=== PATIENT | female | born 1985 | race Hispanic/Latino ===

== ENCOUNTER 2017-04-17 12:41 | Emergency (ER) | payer MEDICAID, OTHER ==
[2017-04-17 13:01] VITALS: TEMP 98.2; O2SAT 99; BMI 30.7
[2017-04-17] MEDS ORDERED: MethylPREDNISolone 40 mg Vial IM STA (13:20)
--- NOTE | 2017-04-17 15:01 | MRI ---
PROCEDURE: MR LUMBAR SPINE WITHOUT CONTRAST HISTORY: low back pain COMPARISON: None available. TECHNIQUE: Multiecho multiplanar sequences were performed through the lumbar spine without the use of intravenous contrast. FINDINGS: Normal lumbar lordosis. Vertebral body heights are preserved. Marrow signal unremarkable. Conus medullaris unremarkable at the level of L1 Paraspinal soft tissues are unremarkable. T12-L1: No disc herniation, spinal canal stenosis or neural foraminal narrowing. L1-2: No disc herniation, spinal canal stenosis or neural foraminal narrowing. L2-3: No disc herniation, spinal canal stenosis or neural foraminal narrowing. L3-4: No disc herniation, spinal canal stenosis or neural foraminal narrowing. L4-5: There is a mild disc bulge and a small left paracentral disc protrusion. L5-S1: Disc degeneration with desiccation of the disc material and mild loss of disc height OTHER FINDINGS: None. IMPRESSION: Disc degeneration with small left paracentral disc protrusion at L4-5. No evidence of direct nerve root compression. No stenosis
--- NOTE | 2017-04-17 15:30 | ED PDOC ---
Arrival/HPI - General Chief Complaint: Back Pain Time Seen by Provider: 04/17/17 13:09 Historian: Patient - History of Present Illness Narrative History of Present Illness (Text): 04/17/17 15:56 31 yo F c/o 3 day history of constant worsening pain in the lower back, radiating to b/l LE. Patient states that she has a history of intermittent chronic low back pain x 10 years, states that her pain is mostly intermittent however for the past 3 days the pain has been constant and worsening, she adds she has shooting pain that is radiating to both of her legs which is new. Otherwise: (-) paresthesias, (-) weakness, (-) acute bowel or bladder dysfunction, (-) urinary symptoms, (-) trauma or injury, (-) fever. Has history of prior back problem. PMD none Past Medical History - Provider Review Nursing Documentation Reviewed: Yes - Infectious Disease Hx of Infectious Diseases: None - Psychiatric Hx Substance Use: No - Anesthesia Hx Anesthesia: No Family/Social History - Physician Review Nursing Documentation Reviewed: Yes Family/Social History: No Known Family HX Smoking Status: Never Smoked Hx Alcohol Use: No Hx Substance Use: No Allergies/Home Meds Allergies/Adverse Reactions: Allergies No Known Allergies Allergy (Verified 04/17/17 12:56) Review of Systems - Review of Systems Constitutional: Normal. absent: Fatigue, Weight Change, Fevers Respiratory: Normal. absent: SOB, Cough, Sputum Cardiovascular: Normal. absent: Chest Pain, Palpitations, Edema Gastrointestinal: Normal. absent: Abdominal Pain, Stool Changes, Appetite Changes Musculoskeletal: Normal, Back Pain (chronic back pain). absent: Arthralgias, Neck Pain Skin: Normal. absent: Rash, Pruritis, Skin Lesions Physical Exam - Physical Exam Narrative Physical Exam (Text): 04/17/17 16:00 GENERAL APPEARANCE: Patient is awake, alert, oriented x 3, in mild to moderate painful distress. SKIN: Warm, dry; (-) cyanosis. EYES: (-) conjunctival pallor. ENMT: Mucous membranes moist. NECK: (-) tenderness, (-) stiffness, (-) lymphadenopathy. CHEST AND RESPIRATORY: (-) rales, (-) rhonchi, (-) wheezes; breath sounds equal bilaterally. HEART AND CARDIOVASCULAR: (-) irregularity; (-) murmur, (-) gallop. ABDOMEN AND GI: Soft; (-) tenderness; (-) palpable mass. BACK: Diffusely tender paralumbar area, (-) spasm, (+) direct bony tenderness to L4-L5, (-) deformity. Straight leg raising (+) only to the R leg at 30 degrees. EXTREMITIES: (-) deformity. Distal pulses good bilaterally. NEURO AND PSYCH: Mental status as above. Intact sensation bilaterally; normal strength in extension of the knees, plantar and dorsiflexion of the toes. DTRs symmetric. Vital Signs Temp Pulse Resp BP Pulse Ox 04/17/17 15:39 74 18 118/72 99 04/17/17 12:59 98.2 F 78 19 110/77 99 Medical Decision Making ED Course and Treatment: 04/17/17 16:01 31 yo F c/o 3 day history of constant worsening pain in the lower back, radiating to b/l LE. Considering the new symptoms of radicular pain, MRI ordered. Plan: - Toradol IM - Solumedrol IM - Tramadol PO - Flexeril PO - MRI L spine - Uhcg On re-evaluation, patient reports improvement of pain. Uhcg (-). Pt sent to MRI. Pt returns from MRI, results still pending. On second re-evaluation, pt states that the pain is returning. On exam, pt is noted to be ambulating in the ER in mild painful distress. Repeat neuro exam, shows no acute findings. MRI results reviewed, shows no evidence of cord compression. Pt medicated with tramadol PO. Pt notified of likely diagnosis of sciatica and MRI findings d/w the pt in great detail. Otherwise advised to follow up with orthopedic referral provided in 1-2 days without fail. Advised to take medication as prescribed. Return to the emergency room at any time for any new or worsening symptoms. Patient states she fully agrees with and understands discharge instructions. States that she agrees with the plan and disposition. Verbalized and repeated discharge instructions and plan. I have given the patient opportunity to ask any additional questions. - RAD Interpretation Narrative RAD Interpretations (Text): 04/17/17 15:30 MRI L spine w/o contrast: FINDINGS: Normal lumbar lordosis. Vertebral body heights are preserved. Marrow signal unremarkable. Conus medullaris unremarkable at the level of L1 Paraspinal soft tissues are unremarkable. T12-L1: No disc herniation, spinal canal stenosis or neural foraminal narrowing. L1-2: No disc herniation, spinal canal stenosis or neural foraminal narrowing. L2-3: No disc herniation, spinal canal stenosis or neural foraminal narrowing. L3-4: No disc herniation, spinal canal stenosis or neural foraminal narrowing. L4-5: There is a mild disc bulge and a small left paracentral disc protrusion. L5-S1: Disc degeneration with desiccation of the disc material and mild loss of disc height OTHER FINDINGS: None. IMPRESSION: Disc degeneration with small left paracentral disc protrusion at L4-5. No evidence of direct nerve root compression. No stenosis Radiology Orders: 04/17/17 13:47 SPINAL CANAL LUMBAR W/O CONT [MRI] Stat - Medication Orders Current Medication Orders: Discontinued Medications Cyclobenzaprine HCl (Flexeril) 10 mg PO STAT STA Stop: 04/17/17 13:21 Last Admin: 04/17/17 13:35 Dose: 10 mg Ketorolac Tromethamine (Toradol) 60 mg IM STAT STA Stop: 04/17/17 13:21 Last Admin: 04/17/17 13:35 Dose: 60 mg Methylprednisolone (Solu-Medrol) 125 mg IM STAT STA Stop: 04/17/17 13:26 Last Admin: 04/17/17 13:35 Dose: 125 mg Tramadol HCl (Ultram) 50 mg PO STAT STA Stop: 04/17/17 13:21 Last Admin: 04/17/17 13:35 Dose: 50 mg Tramadol HCl (Ultram) 50 mg PO STAT STA Stop: 04/17/17 15:27 Last Admin: 04/17/17 15:38 Dose: 50 mg - PA / [employer]ER / Resident Statement / has reviewed & agrees with the documentation as recorded. Disposition/Present on Arrival - Present on Arrival Any Indicators Present on Arrival: No History of DVT/PE: No History of Uncontrolled Diabetes: No Urinary Catheter: No History of Decub. Ulcer: No History Surgical Site Infection Following: None - Disposition Have Diagnosis and Disposition been Completed?: Yes Diagnosis: Sciatica Disposition: HOME/ ROUTINE Disposition Time: 15:26 Patient Plan: Discharge Condition: IMPROVED Discharge Instructions (ExitCare): Sciatica (ED) Print Language: UKRAINIAN Additional Instructions: Thank you for letting us take care of you today. You were treated for sciatica. The emergency medical care you received today was directed at your acute symptoms. If you were prescribed any medication, please fill it and take as directed. It may take several days for your symptoms to resolve. Return to the Emergency Department if your symptoms worsen, do not improve, or if you have any other problems. Please contact one of the physicians/clinics you have been referred to that are listed on the Patient Visit Information form that is included in your discharge packet. Bring any paperwork you were given at discharge with you along with any medications you are taking to your follow up visit. Our treatment cannot replace ongoing medical care by a primary care provider (PCP) outside of the emergency department. Thank you for allowing the [facility] team to be part of your care today. MRI Lumbar spine : Disc degeneration with small left paracentral disc protrusion at L4-5. No evidence of direct nerve root compression. No stenosis Prescriptions: Cyclobenzaprine [Cyclobenzaprine HCl] 10 mg PO TID PRN #15 tab PRN Reason: Muscle Spasm Naproxen 500 mg PO BID #30 tab traMADol [Ultram] 50 mg PO TID PRN #15 tab PRN Reason: Pain, Moderate (4-7) Referrals: PCP,NO [Primary Care Provider] - Follow up with primary Rigoberto Church MD [Staff Provider] - Follow up with primary Forms: [employer] ([place]), WORK NOTE
[2017-04-17 15:40] VITALS: BP 118/72; PULSE 74; RESP 18
== END 2017-04-17 15:39 | disposition home or self-care (01) ==
LOC: ED 12:41
DX: M54.30 Sciatica, unspecified side (principal)
CPT/HCPCS: 72148; 96372; 99283; J1885; J2930

== ENCOUNTER 2018-01-13 01:37 | Emergency (ER) | payer MEDICAID ==
[2018-01-13 01:37] VITALS: BMI 30.7
[2018-01-13 01:56] VITALS: PULSE 76; TEMP 98.6
--- NOTE | 2018-01-13 02:58 | ED PDOC ---
Arrival/HPI <Juan Atkinson - Last Filed: 01/13/18 04:11> <Kay Paez - Last Filed: 01/13/18 07:05> - General Chief Complaint: Abdominal Pain Time Seen by Provider: 01/13/18 01:57 - History of Present Illness Narrative History of Present Illness (Text): 01/13/18 02:41 Patient is a 32 year old female with no significant past medical history who presents to the ED complaining of abdominal pain for 2 days duration. Patient describes the pain as sharp, stabbing 8/10 pain that comes and goes, lasting 10- 15 minutes at a time. She also admits to feeling bloated. Patient says as soon as she has a bowel movement, the pain improves. Patient says she is having diarrhea every hour that is dark green to black. She also admits to nausea and vomiting (6 episodes) since the pain started and a metallic taste in her mouth. She admits to associated dizziness as well. Patient says she started taking iron 9 days ago because she thought this could help with her chronic alopecia. She says that she thinks this could be the cause of her stomach upset. Patient became anxious when she googled her symptoms, as she was worried she has iron toxicity. She states she has been taking 325 mg every other day, along with her multivitamin that also contains iron. PMH: denies Meds: Multivitamin, biotin, hair/skin/nails supplement, iron Allergies: NKDA PSH: Laparoscopy for endometriosis FH: daughter with DM I and parents with DM II SH: social wine drinker, denies tobacco or elicit drug use (Kay Paez) Past Medical History - Provider Review Nursing Documentation Reviewed: Yes <Juan Atkinson - Last Filed: 01/13/18 04:11> - Past History Past History: No Previous - Infectious Disease Hx of Infectious Diseases: None - Psychiatric Hx Substance Use: No - Anesthesia Hx Anesthesia: No <Kay Paez - Last Filed: 01/13/18 07:05> Family/Social History - Physician Review Nursing Documentation Reviewed: Yes <Juan Atkinson - Last Filed: 01/13/18 04:11> Family/Social History: Diabetes Smoking Status: Never Smoked Hx Alcohol Use: No Hx Substance Use: No <Kay Paez - Last Filed: 01/13/18 07:05> Allergies/Home Meds <DemetrioJuan Vj - Last Filed: 01/13/18 04:11> <Kay Paez - Last Filed: 01/13/18 07:05> Allergies/Adverse Reactions: Allergies No Known Allergies Allergy (Verified 01/13/18 01:57) Home Medications: Home Meds Medication Instructions Recorded Confirmed Biotin 10,000 mcg PO DAILY 01/13/18 01/13/18 Ferrous Sulfate [Feosol] 325 mg PO QOTHERDAY 01/13/18 01/13/18 Review of Systems - Physician Review All systems were reviewed & negative as marked: Yes - Review of Systems Constitutional: absent: Fatigue, Fevers, Night Sweats Eyes: absent: Vision Changes ENT: absent: Hearing Changes, Tinnitus Respiratory: absent: SOB, Cough, Wheezing Cardiovascular: absent: Chest Pain, Palpitations, Calf Pain Gastrointestinal: Abdominal Pain, Diarrhea, Nausea, Vomiting. absent: Constipation, Hematochezia Genitourinary Female: absent: Dysuria, Frequency, Hematuria Musculoskeletal: absent: Arthralgias, Back Pain, Neck Pain, Myalgias Skin: absent: Rash Neurological: Headache (history of migraines, last one was yesterday), Dizziness Endocrine: Polyuria Psychiatric: Anxiety. absent: Depression, Suicidal Ideation <Kay Paez - Last Filed: 01/13/18 07:05> Physical Exam Temperature: Afebrile Blood Pressure: Normal Pulse: Regular Respiratory Rate: Normal Appearance: Positive for: Well-Appearing, Non-Toxic, Comfortable, Other (anxious ) Pain Distress: Mild Mental Status: Positive for: Alert and Oriented X 3 - Systems Exam Head: Present: Atraumatic, Normocephalic Pupils: Present: PERRL Extroacular Muscles: Present: EOMI Conjunctiva: Present: Normal Mouth: Present: Moist Mucous Membranes Neck: Present: Normal Range of Motion Respiratory/Chest: Present: Clear to Auscultation, Good Air Exchange. No: Respiratory Distress, Accessory Muscle Use Cardiovascular: Present: Regular Rate and Rhythm, Normal S1, S2. No: Murmurs Abdomen: Present: Tenderness (mild, generalized), Normal Bowel Sounds. No: Distention, Peritoneal Signs, Guarding, Mass/Organomegaly Upper Extremity: Present: Normal Inspection. No: Cyanosis, Edema Lower Extremity: Present: Normal Inspection. No: Edema, CALF TENDERNESS Neurological: Present: GCS=15, Speech Normal Skin: Present: Warm, Dry, Normal Color. No: Rashes Psychiatric: Present: Alert, Oriented x 3, Normal Insight, Normal Concentration <Kay Paez - Last Filed: 01/13/18 07:05> Vital Signs Temp Pulse Resp BP Pulse Ox 01/13/18 01:52 98.6 F 76 18 119/80 99 Medical Decision Making <Juan Atkinson - Last Filed: 01/13/18 04:11> <Kay Paez - Last Filed: 01/13/18 07:05> ED Course and Treatment: Seen and examined with resident. 32 year old female presents complaining of abdominal pain for the past 2 days associated with nausea, vomiting, and diarrhea. On examination, patient presents with mild generalized abdominal tenderness. (Juan tAkinson) 01/13/18 03:07 Will order routine lab work to rule out electrolyte abnormalities from excessive diarrhea. Instructed patient to discontinue taking iron supplement as this could be contributing to her stomach upset. Will give zofran for nausea and reassess. Patient discussed with Dr. Atkinson. 01/13/18 07:00 CT Abdomen/Pelvis showed no acute findings. (Kay Paez) - Lab Interpretations Lab Results: 01/13/18 03:11 01/13/18 03:11 Lab Results 01/13/18 03:11: Sodium 143, Potassium 4.0, Chloride 105, Carbon Dioxide 27, Anion Gap 15, BUN 18, Creatinine 0.8, Est GFR ( Amer) > 60, Est GFR (Non- Af Amer) > 60, Random Glucose 97, Calcium 9.4, Magnesium 2.1, Total Bilirubin 0.1 L, AST 38 H, ALT 26, Alkaline Phosphatase 48, Total Protein 7.2, Albumin 4.3 , Globulin 2.8, Albumin/Globulin Ratio 1.5 01/13/18 03:11: WBC 12.8 H, RBC 4.34, Hgb 12.4, Hct 37.0, MCV 85.3, MCH 28.6, MCHC 33.5, RDW 14.0, Plt Count 292, MPV 9.3, Gran % 78.5 H, Lymph % (Auto) 16.9 L, [place] % (Auto) 4.2, Eos % (Auto) 0.3 L, Baso % (Auto) 0.1, Gran # 10.06 H, Lymph # (Auto) 2.2, [place] # (Auto) 0.5, Eos # (Auto) 0.0, Baso # (Auto) 0.01 - RAD Interpretation Radiology Orders: 01/13/18 03:56 ABD & PELVIS IV CONTRAST ONLY [CT] Stat - Medication Orders Current Medication Orders: Discontinued Medications Ondansetron HCl (Zofran Tab) 4 mg PO STAT STA Stop: 01/13/18 02:31 Last Admin: 01/13/18 03:18 Dose: Not Given Non-Admin Reason: Patient Refused Simethicone (Mylicon Chew Tab) 80 mg PO STAT STA Stop: 01/13/18 03:57 Last Admin: 01/13/18 04:18 Dose: 80 mg - 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 / has examined the patient and agrees with the treatment plan. <Kay Paez - Last Filed: 01/13/18 07:05> Disposition/Present on Arrival <Juan Atkinson - Last Filed: 01/13/18 04:11> - Present on Arrival Any Indicators Present on Arrival: No History of DVT/PE: No History of Uncontrolled Diabetes: No Urinary Catheter: No History of Decub. Ulcer: No History Surgical Site Infection Following: None - Disposition Have Diagnosis and Disposition been Completed?: Yes Disposition Time: 07:01 <Kay Paez - Last Filed: 01/13/18 07:05> - Disposition Diagnosis: Iron adverse reaction, Diarrhea Condition: STABLE Discharge Instructions (ExitCare): Diarrhea in Adolescents and Adults Additional Instructions: Please follow up with a primary care physician within the next 2-3 days. Forms: [employer] ([place]se)
[2018-01-13 03:37] LABS: BASO # 0.01 K/mm3 (0.0-2.0); BASO % 0.1 % (0.0-3.0); EOS % 0.3 % (1.5-5.0); GRAN # 10.06 (1.4-6.5); GRAN % 78.5 % (50.0-68.0); HEMOGLOBIN 12.4 g/dL (12.0-16.0); LYMPH # 2.2 (1.2-3.4); LYMPH % 16.9 % (22.0-35.0); MEAN CELL VOLUME 85.3 fl (80.0-105.0); MEAN CORPUSCULAR HEMOGLOBIN 28.6 pg (25.0-35.0); MEAN CORPUSCULAR HGB CONC 33.5 g/dl (31.0-37.0); MEAN PLATELET VOLUME 9.3 fl (7.0-11.0); MONO # 0.5 (0.1-0.6); MONO % 4.2 % (1.0-6.0); RBC 4.34 10^6/uL (3.5-6.1); WHITE BLOOD COUNT 12.8 10^3/ul (4.5-11.0)
[2018-01-13 03:47] LABS: ALB/GLOB RATIO 1.5 (1.1-1.8); ALBUMIN 4.3 g/dL (3.0-4.8); ALT/SGPT 26 U/L (7-56); AST/SGOT 38 U/L (14-36); BLOOD UREA NITROGEN 18 mg/dL (7-21); CALCIUM 9.4 mg/dL (8.4-10.5); GFR AFRICAN-AMERICAN > 60; GFR NON-AFRICAN AMERICAN > 60
[2018-01-13] MEDS ORDERED: Simethicone 80 mg Chewtab PO STA (03:56)
[2018-01-13] MEDS ORDERED: Iohexol 350 MG/100 ML VIAL ONE (05:05)
[2018-01-13 07:06] VITALS: BP 128/76; RESP 16; O2SAT 100
--- NOTE | 2018-01-13 09:34 | CT ---
PROCEDURE: CT Abdomen and Pelvis with contrast HISTORY: abdominal pain COMPARISON: None. TECHNIQUE: Contrast dose: 100 cc of Omni 350 Radiation dose: Total exam DLP = 753 mGy-cm. This CT exam was performed using one or more of the following dose reduction techniques: Automated exposure control, adjustment of the mA and/or kV according to patient size, and/or use of iterative reconstruction technique. FINDINGS: LOWER THORAX: Unremarkable. LIVER: Unremarkable. No gross lesion or ductal dilatation. GALLBLADDER AND BILE DUCTS: Unremarkable. PANCREAS: Unremarkable. No gross lesion or ductal dilatation. SPLEEN: Unremarkable. ADRENALS: Unremarkable. No mass. KIDNEYS AND URETERS: Multiple nonobstructing stones are seen in both kidneys. VASCULATURE: Unremarkable. No aortic aneurysm. BOWEL: Unremarkable. No obstruction. No gross mural thickening. APPENDIX: Normal appendix. PERITONEUM: Unremarkable. No free fluid. No free air. LYMPH NODES: Unremarkable. No enlarged lymph nodes. BLADDER: Unremarkable. REPRODUCTIVE: Unremarkable. BONES: No acute fracture. OTHER FINDINGS: The report concurs with the preliminary [facility] report IMPRESSION: No acute intra-abdominal findings. Nephrolithiasis
== END 2018-01-13 07:13 | disposition home or self-care (01) ==
LOC: ED 01:37
DX: K52.1 Toxic gastroenteritis and colitis (principal); T45.4X5A Adverse effect of iron and its compounds, initial encounter; Y92.89 Other specified places as the place of occurrence of the external cause
CPT/HCPCS: 74177; 80053; 83735; 85025; 99283; Q9967